=== PATIENT | female | born 1955 | race Caucasian/White ===

== ENCOUNTER 2020-08-26 10:04 | Outpatient (CLI) | payer OTHER ==
[~2020-08-26 10:04] MED LIST: DIOVAN40 MG
== END 2020-08-26 10:14 | disposition home or self-care (01) ==
LOC: SONOGRAMA 10:04
PROVIDERS: ATTEND Pathology Anatomic Pathology & Clinical Pathology
DX: D34 Benign neoplasm of thyroid gland (principal)